=== PATIENT | male | born 1960 | race African-American/Black ===

== ENCOUNTER 2018-06-11 11:37 | Inpatient (IN) | payer OTHER ==
[2018-06-11 11:55] VITALS: BMI 22.7
--- NOTE | 2018-06-11 13:36 | HP ---
CIWA Score - CIWA Score Nausea/Vomitin Muscle Tremors: 2 Anxiety: 3 Agitation: 3 Paroxysmal Sweats: 1-Minimal Palms Moist Orientation: 0-Oriented Tacttile Disturbances: 1-Very Mild Itch/Numbness Auditory Disturbances: 1-Very Mild Visual Disturbances: 1-Very Mild Sensitivity Headache: 2-Mild CIWA-Ar Total Score: 16 Admission ROS BHS - HPI Chief Complaint: i need help to stop drinking alcohol,cocaine,marijuana Allergies/Adverse Reactions: Allergies Allergy/AdvReac Type Severity Reaction Status Date / Time No Known Allergies Allergy Verified 06/11/18 13:31 History of Present Illness: this 58 years old male with alcohol,cocaine and marijuana dependence seeking detox,withdrawal symptom,last detox 2013 unknown facility not completed low back pain nicotine dependence longest period of sobriety 2 years weight loss anxiety Exam Limitations: No Limitations - Ebola screening Have you traveled outside of the country in the last 21 days: No Have you had contact with anyone from an Ebola affected area: No Have you been sick,other than usual withdrawal symptoms: No Do you have a fever: No - Review of Systems Constitutional: Loss of Appetite, Malaise, Night Sweats, Weakness, Unintentional Wgt. Loss EENT: reports: Nose Congestion Respiratory: reports: No Symptoms reported Cardiac: reports: No Symptoms Reported GI: reports: Nausea, Indigestion, Abdominal cramping : reports: No Symptoms Reported Musculoskeletal: reports: Back Pain, Muscle Pain Integumentary: reports: Dryness Neuro: reports: Headache, Tremors Endocrine: reports: No Symptoms Reported Hematology: reports: No Symptoms Reported Psychiatric: reports: No Sypmtoms Reported, Judgement Intact, Mood/Affect Appropiate, Orientated x3, Agitated, Anxious Patient History - Patient Medical History Hx Anemia: No Hx Asthma: No Hx Chronic Obstructive Pulmonary Disease (COPD): No Hx Cancer: No Hx Cardiac Disorders: No Hx Congestive Heart Failure: No Hx Hypertension: No Hx Hypercholesterolemia: No Hx Pacemaker: No HX Cerebrovascular Accident: No Hx Seizures: No Hx Dementia: No Hx Diabetes: No Hx Gastrointestinal Disorders: No Hx Liver Disease: No Hx Genitourinary Disorders: No Hx Sexually Transmitted Disorders: No Hx Renal Disease (ESRD): No Hx Thyroid Disease: No Hx Human Immunodeficiency Virus (HIV): No (last 08/27 negative) Hx Hepatitis C: No Hx Depression: No Hx Suicide Attempt: No Hx Bipolar Disorder: No Hx Schizophrenia: No Other Medical History: no sucidal,no homicidal - Patient Surgical History Past Surgical History: Yes Hx Abdominal Surgery: Yes (umbilical hernia repair in 2013) - PPD History Previous Implant?: Yes Documented Results: Negative w/o proof PPD to be Administered?: Yes - Smoking Cessation Smoking history: Current every day smoker Have you smoked in the past 12 months: Yes Aproximately how many cigarettes per day: 10 Cigars Per Day: 0 Hx Chewing Tobacco Use: No Initiated information on smoking cessation: Yes 'Breaking Loose' booklet given: 06/11/18 - Substance & Tx. History Hx Alcohol Use: Yes Hx Substance Use: Yes Substance Use Type: Alcohol, Cocaine, Marijuana - Substances Abused Alcohol Route: Oral Frequency: Daily Amount used: 1 pint liquor Age of first use: 14 Date of Last Use: 06/10/18 Cocaine Route: Inhalation Frequency: 1-3 times last 30 days Amount used: 1 hit Age of first use: 16 Date of Last Use: 06/10/18 Marijuana/Hashish Route: Smoking Frequency: Daily Amount used: 1 bag Age of first use: 12 Date of Last Use: 06/10/18 Family Disease History - Family Disease History Family History: Denies Admission Physical Exam [facility] - Vital Signs Vital Signs: Vital Signs - 24 hr 06/11/18 11:54 Temperature 96.8 F L Pulse Rate 51 L Respiratory 18 Rate Blood Pressure 140/84 - Physical General Appearance: Yes: Moderate Distress, Tremorous, Irritable, Sweating, Anxious HEENTM: Yes: Normal ENT Inspection, SHIRA, Pharynx Normal, Other (denture upper and lower) Respiratory: Yes: Lungs Clear, Normal Breath Sounds, No Respiratory Distress Neck: Yes: Within Normal Limits, Supple, Trachea in good position Breast: Yes: Within Normal Limits Cardiology: Yes: Within Normal Limits, Regular Rhythm, Regular Rate, S1, S2 Abdominal: Yes: Within Normal Limits, Normal Bowel Sounds, Soft Genitourinary: Yes: Within Normal Limits Back: Yes: Muscle Spasm Musculoskeletal: Yes: full range of Motion, Back pain, Muscle Pain Extremities: Yes: Tremors Neurological: Yes: builder's labourer II-XII NML intact, Fully Oriented, Alert, Motor Strength 5/5 Integumentary: Yes: Dry Lymphatic: Yes: Within Normal Limits - Diagnostic (1) Alcohol dependence with uncomplicated withdrawal Current Visit: Yes Status: Acute (2) Cocaine dependence Current Visit: Yes Status: Acute (3) Cannabis dependence Current Visit: Yes Status: Acute (4) Anxiety Current Visit: Yes Status: Acute (5) Nicotine dependence Current Visit: Yes Status: Acute (6) Weight loss Current Visit: Yes Status: Acute Cleared for Admission S - Detox or Rehab [facility] Level of Care: Medically Managed Detox Regimen/Protocol: Librium S Breath Alcohol Content Breath Alcohol Content: 0 Urine Drug Screen - Results Drug Screen Negative: No Urine Drug Screen Results: THC-Marijuana, LUDIVINA-Cocaine
[2018-06-11] MEDS ORDERED: P-EPHED 60MG/TRIPROLIDI 2.5MG TABLET PO PRN (13:47)
[2018-06-11] MEDS ORDERED: IBUPROFEN 400 MG TABLET (FP) PO PRN (13:47)
[2018-06-11] MEDS ORDERED: MAGNESIUM CITRATE 300 ML BOTTLE PO PRN (13:47)
[2018-06-11] MEDS ORDERED: MAG HYDROX/AL HYDROX/SIMETH 30 ML UNIT-DOSE CUP PO PRN (13:47)
[2018-06-11] MEDS ORDERED: MAGNESIUM HYDROX 2400MG/30ML ORAL SUSPENSION 30 ML CUP PO PRN (13:47)
[2018-06-11] MEDS ORDERED: guaiFENesin/D-METHORPHAN HB 10 ML UNIT-DOSE CUPS PO PRN (13:47)
[2018-06-11] MEDS ORDERED: MENTHOL/PHENOL 1 EACH UD MM PRN (13:47)
[2018-06-11] MEDS ORDERED: hydrOXYzine PAMOATE 25 MG CAPSULE (FP) PO PRN (13:47)
[2018-06-11] MEDS ORDERED: chlordiazePOXIDE HCL 25 MG CAPSULE PO PRN (13:47)
[2018-06-11] MEDS ORDERED: LOPERAMIDE HCL 2 MG CAPSULE PO PRN (13:47)
[2018-06-11] MEDS ORDERED: ACETAMINOPHEN 325 MG TABLET (FP) PO PRN (13:47)
[2018-06-11 17:55] LABS: URINE APPEARANCE CLEAR; URINE BILIRUBIN NEGATIVE (<2.0 mg/dL); URINE COLOR LTYELLOW; URINE GLUCOSE (UA) NEGATIVE (NEGATIVE); URINE KETONE NEGATIVE (NEGATIVE); URINE LEUK ESTERASE NEGATIVE (NEGATIVE); URINE NITRITE NEGATIVE (NEGATIVE); URINE PROTEIN NEGATIVE (NEGATIVE); URINE UROBILINOGEN NEGATIVE mg/dL (0.2-1.0)
[2018-06-11] MEDS: chlordiazePOXIDE HCL 25 MG CAPSULE PO SCH ×2 (18:01→22:07)
[2018-06-11] MEDS ORDERED: MELATONIN 5 MG TABLETS PO PRN (22:00)
[2018-06-11] MEDS: THIAMINE HCL 100 MG TABLET (FP) PO SCH (22:08)
[2018-06-12] MEDS: chlordiazePOXIDE HCL 25 MG CAPSULE PO SCH ×4 (05:34→22:51)
[2018-06-12] MEDS: PRENATAL VITAMINS W/ FOLIC ACID TABLET (FP) PO SCH (10:08)
[2018-06-12 10:33] LABS: HEMATOCRIT 47.3 % (35.4-49); HEMOGLOBIN 15.2 GM/dL (11.7-16.9); MCH 30.3 pg (25.7-33.7); MCHC 32.3 g/dl (32.0-35.9); MEAN PLT VOLUME 8.8 fl (7.5-11.1); PLATELET COUNT 302 K/MM3 (134-434); RBC 5.03 M/mm3 (4.00-5.60); RDW 15.4 % (11.9-15.9); WHITE BLOOD COUNT 4.1 K/mm3 (4.0-10.0)
--- NOTE | 2018-06-12 11:07 | EKG ---
Test Reason : Blood Pressure : / mmHG Vent. Rate : 052 BPM Atrial Rate : 052 BPM P-R Int : 118 ms QRS Dur : 084 ms QT Int : 428 ms P-R-T Axes : 069 032 008 degrees QTc Int : 398 ms SINUS BRADYCARDIA NONSPECIFIC ST AND T WAVE ABNORMALITY ABNORMAL ECG NO PREVIOUS ECGS AVAILABLE Confirmed by Nicolas Hall MD ([id number]) on 06/12/2018 11:07:08 AM Referred By: Confirmed By:Nicolas Hall MD
--- NOTE | 2018-06-12 11:20 | PN ---
S CIWA - CIWA Score Nausea/Vomitin-No Nausea/No Vomiting Muscle Tremors: 4-Moderate,w/Arms Extend Anxiety: 3 Agitation: 2 Paroxysmal Sweats: 2 Orientation: 0-Oriented Tacttile Disturbances: 0-None Auditory Disturbances: 0-None Visual Disturbances: 0-None Headache: 0-None Present CIWA-Ar Total Score: 11 BHS Progress Note (SOAP) Subjective: sweats chills agitation interrupted sleep Objective: 06/12/18 11:18 Vital Signs Temperature 98.2 F 06/12/18 09:17 Pulse Rate 57 L 06/12/18 09:17 Respiratory Rate 18 06/12/18 09:17 Blood Pressure 112/69 06/12/18 09:17 O2 Sat by Pulse Oximetry (%) Laboratory Tests 06/11/18 06/11/18 06/12/18 06:00 15:25 06:00 WBC 4.1 RBC 5.03 Hgb 15.2 Hct 47.3 MCV 94.0 MCH 30.3 MCHC 32.3 RDW 15.4 Plt Count 302 MPV 8.8 Urine Color Ltyellow Urine Appearance Clear Urine pH 7.0 Ur Specific [place] 1.016 Urine Protein Negative Urine Glucose (UA) Negative Urine Ketones Negative Urine Blood Negative Urine Nitrite Negative Urine Bilirubin Negative Urine Urobilinogen Negative Ur Leukocyte Esterase Negative RPR Titer HIV 1&2 Antibody Screen Negative HIV P24 Antigen Negative 06/12/18 06:00 WBC RBC Hgb Hct MCV MCH MCHC RDW Plt Count MPV Urine Color Urine Appearance Urine pH Ur Specific [place] Urine Protein Urine Glucose (UA) Urine Ketones Urine Blood Urine Nitrite Urine Bilirubin Urine Urobilinogen Ur Leukocyte Esterase RPR Titer Nonreactive HIV 1&2 Antibody Screen HIV P24 Antigen labs pending aaox3 ambulating no acute distress Assessment: 06/12/18 11:19 withdrawal sx Plan: continue detox increase fluids
[2018-06-12 11:23] LABS: ALBUMIN 4.3 g/dl (3.4-5.0); ALK PHOS 65 U/L (45-117); ANION GAP -6 MMOL/L (8-16); BILIRUBIN,TOTAL 0.6 mg/dL (0.2-1); BLOOD UREA NITROGEN 10 mg/dL (7-18); CALCIUM 10.7 mg/dL (8.5-10.1); CHLORIDE 110 mmol/L (98-107); CO2 27 mmol/L (21-32); CREATININE 1.1 mg/dL (0.55-1.3); GLUCOSE,RANDOM 101 mg/dL (74-106); POTASSIUM 3.6 mmol/L (3.5-5.1); SGOT/AST 9 U/L (15-37); SGPT/ALT 22 U/L (13-61); SODIUM 131 mmol/L (136-145); TOT PROT 8.5 g/dl (6.4-8.2)
[2018-06-12] MEDS: THIAMINE HCL 100 MG TABLET (FP) PO SCH (22:51)
[2018-06-13] MEDS: chlordiazePOXIDE HCL 25 MG CAPSULE PO SCH ×2 (06:17→10:58)
[2018-06-13] MEDS ORDERED: COLLOIDAL OATMEAL 1 BAR EACH TP PRN (08:39)
[2018-06-13] MEDS: PRENATAL VITAMINS W/ FOLIC ACID TABLET (FP) PO SCH (10:06)
--- NOTE | 2018-06-13 10:47 | PN ---
S CIWA - CIWA Score Nausea/Vomitin-No Nausea/No Vomiting Muscle Tremors: 3 Anxiety: 2 Agitation: 2 Paroxysmal Sweats: 1-Minimal Palms Moist Orientation: 0-Oriented Tacttile Disturbances: 0-None Auditory Disturbances: 0-None Visual Disturbances: 0-None Headache: 0-None Present CIWA-Ar Total Score: 8 BHS Progress Note (SOAP) Subjective: mild alcohol withdrawal, social with peers in day room talking about aftercare Objective: 06/13/18 10:49 Vital Signs Temperature 97.5 F L 06/13/18 09:04 Pulse Rate 70 06/13/18 09:04 Respiratory Rate 18 06/13/18 09:04 Blood Pressure 120/69 06/13/18 09:04 O2 Sat by Pulse Oximetry (%) Laboratory Last Values WBC 4.1 K/mm3 (4.0-10.0) 06/12/18 06:00 RBC 5.03 M/mm3 (4.00-5.60) 06/12/18 06:00 Hgb 15.2 GM/dL (11.7-16.9) 06/12/18 06:00 Hct 47.3 % (35.4-49) 06/12/18 06:00 MCV 94.0 fl (80-96) 06/12/18 06:00 MCH 30.3 pg (25.7-33.7) 06/12/18 06:00 MCHC 32.3 g/dl (32.0-35.9) 06/12/18 06:00 RDW 15.4 % (11.9-15.9) 06/12/18 06:00 Plt Count 302 K/MM3 (134-434) 06/12/18 06:00 MPV 8.8 fl (7.5-11.1) 06/12/18 06:00 Sodium 131 mmol/L (136-145) L 06/12/18 06:00 Potassium 3.6 mmol/L (3.5-5.1) 06/12/18 06:00 Chloride 110 mmol/L (98-107) H 06/12/18 06:00 Carbon Dioxide 27 mmol/L (21-32) 06/12/18 06:00 Anion Gap -6 MMOL/L (8-16) L 06/12/18 06:00 BUN 10 mg/dL (7-18) 06/12/18 06:00 Creatinine 1.1 mg/dL (0.55-1.3) 06/12/18 06:00 Creat Clearance w eGFR > 60 (>60) 06/12/18 06:00 Random Glucose 101 mg/dL (74-106) 06/12/18 06:00 Calcium 10.7 mg/dL (8.5-10.1) H 06/12/18 06:00 Total Bilirubin 0.6 mg/dL (0.2-1) 06/12/18 06:00 AST 9 U/L (15-37) L 06/12/18 06:00 ALT 22 U/L (13-61) 06/12/18 06:00 Alkaline Phosphatase 65 U/L (45-117) 06/12/18 06:00 Total Protein 8.5 g/dl (6.4-8.2) H 06/12/18 06:00 Albumin 4.3 g/dl (3.4-5.0) 06/12/18 06:00 Urine Color Ltyellow 06/11/18 15:25 Urine Appearance Clear 06/11/18 15:25 Urine pH 7.0 (5.0-8.0) 06/11/18 15:25 Ur Specific [place] 1.016 (1.001-1.035) 06/11/18 15:25 Urine Protein Negative (NEGATIVE) 06/11/18 15:25 Urine Glucose (UA) Negative (NEGATIVE) 06/11/18 15:25 Urine Ketones Negative (NEGATIVE) 06/11/18 15:25 Urine Blood Negative (NEGATIVE) 06/11/18 15:25 Urine Nitrite Negative (NEGATIVE) 06/11/18 15:25 Urine Bilirubin Negative (<2.0 mg/dL) 06/11/18 15:25 Urine Urobilinogen Negative mg/dL (0.2-1.0) 06/11/18 15:25 Ur Leukocyte Esterase Negative (NEGATIVE) 06/11/18 15:25 RPR Titer Nonreactive (NONREACTIVE) 06/12/18 06:00 HIV 1&2 Antibody Screen Negative 06/11/18 06:00 HIV P24 Antigen Negative 06/11/18 06:00 lab noted Assessment: 06/13/18 10:52 withdrawal sx Plan: continue detox
[2018-06-13] MEDS: chlordiazePOXIDE 5 MG CAPSULE PO SCH ×2 (17:30→22:15)
[2018-06-13] MEDS: THIAMINE HCL 100 MG TABLET (FP) PO SCH (22:15)
[2018-06-13] MEDS: MINERAL OIL/PETROLAT/WATER TOPICAL CREAM 113 GM JAR TP SCH (22:15)
[2018-06-14] MEDS: chlordiazePOXIDE 5 MG CAPSULE PO SCH ×2 (06:00→10:52)
--- NOTE | 2018-06-14 09:47 | PN ---
BHS Progress Note (SOAP) Subjective: feeling better, no tremor less sweat, sleep better at night, social with peers in day room discuss aftercare with staff request soap for shower Objective: 06/14/18 09:46 Vital Signs Temperature 98.2 F 06/14/18 09:17 Pulse Rate 67 06/14/18 09:17 Respiratory Rate 18 06/14/18 09:17 Blood Pressure 118/83 06/14/18 09:17 O2 Sat by Pulse Oximetry (%) Laboratory Last Values WBC 4.1 K/mm3 (4.0-10.0) 06/12/18 06:00 RBC 5.03 M/mm3 (4.00-5.60) 06/12/18 06:00 Hgb 15.2 GM/dL (11.7-16.9) 06/12/18 06:00 Hct 47.3 % (35.4-49) 06/12/18 06:00 MCV 94.0 fl (80-96) 06/12/18 06:00 MCH 30.3 pg (25.7-33.7) 06/12/18 06:00 MCHC 32.3 g/dl (32.0-35.9) 06/12/18 06:00 RDW 15.4 % (11.9-15.9) 06/12/18 06:00 Plt Count 302 K/MM3 (134-434) 06/12/18 06:00 MPV 8.8 fl (7.5-11.1) 06/12/18 06:00 Sodium 131 mmol/L (136-145) L 06/12/18 06:00 Potassium 3.6 mmol/L (3.5-5.1) 06/12/18 06:00 Chloride 110 mmol/L (98-107) H 06/12/18 06:00 Carbon Dioxide 27 mmol/L (21-32) 06/12/18 06:00 Anion Gap -6 MMOL/L (8-16) L 06/12/18 06:00 BUN 10 mg/dL (7-18) 06/12/18 06:00 Creatinine 1.1 mg/dL (0.55-1.3) 06/12/18 06:00 Creat Clearance w eGFR > 60 (>60) 06/12/18 06:00 Random Glucose 101 mg/dL (74-106) 06/12/18 06:00 Calcium 10.7 mg/dL (8.5-10.1) H 06/12/18 06:00 Total Bilirubin 0.6 mg/dL (0.2-1) 06/12/18 06:00 AST 9 U/L (15-37) L 06/12/18 06:00 ALT 22 U/L (13-61) 06/12/18 06:00 Alkaline Phosphatase 65 U/L (45-117) 06/12/18 06:00 Total Protein 8.5 g/dl (6.4-8.2) H 06/12/18 06:00 Albumin 4.3 g/dl (3.4-5.0) 06/12/18 06:00 Urine Color Ltyellow 06/11/18 15:25 Urine Appearance Clear 06/11/18 15:25 Urine pH 7.0 (5.0-8.0) 06/11/18 15:25 Ur Specific [place] 1.016 (1.001-1.035) 06/11/18 15:25 Urine Protein Negative (NEGATIVE) 06/11/18 15:25 Urine Glucose (UA) Negative (NEGATIVE) 06/11/18 15:25 Urine Ketones Negative (NEGATIVE) 06/11/18 15:25 Urine Blood Negative (NEGATIVE) 06/11/18 15:25 Urine Nitrite Negative (NEGATIVE) 06/11/18 15:25 Urine Bilirubin Negative (<2.0 mg/dL) 06/11/18 15:25 Urine Urobilinogen Negative mg/dL (0.2-1.0) 06/11/18 15:25 Ur Leukocyte Esterase Negative (NEGATIVE) 06/11/18 15:25 RPR Titer Nonreactive (NONREACTIVE) 06/12/18 06:00 HIV 1&2 Antibody Screen Negative 06/11/18 06:00 HIV P24 Antigen Negative 06/11/18 06:00 lab noted Assessment: 06/14/18 09:47 mild withdrawal sx 06/14/18 09:47 dry itchy skin Plan: medically supervised detox [facility]
[2018-06-14] MEDS: PRENATAL VITAMINS W/ FOLIC ACID TABLET (FP) PO SCH (10:52)
[2018-06-14] MEDS: chlordiazePOXIDE HCL 10 MG CAPSULE PO SCH ×2 (18:54→23:06)
[2018-06-14] MEDS: MINERAL OIL/PETROLAT/WATER TOPICAL CREAM 113 GM JAR TP SCH (23:06)
[2018-06-14] MEDS: THIAMINE HCL 100 MG TABLET (FP) PO SCH (23:06)
[2018-06-15] MEDS: chlordiazePOXIDE HCL 10 MG CAPSULE PO SCH (06:11)
[2018-06-15 07:23] VITALS: BP 121/75; PULSE 67; TEMP 97.9
--- NOTE | 2018-06-15 11:08 | DS ---
[facility] Detox Discharge Summary Admission Date: 06/11/18 - History Present History: Alcohol Dependence, Cannabis Dependence, Cocaine Dependence - Physical Exam Results Vital Signs: Vital Signs Temperature 97.9 F 06/15/18 07:22 Pulse Rate 67 06/15/18 07:22 Respiratory Rate 18 06/15/18 07:22 Blood Pressure 121/75 06/15/18 07:22 O2 Sat by Pulse Oximetry (%) Pertinent Admission Physical Exam Findings: PATIENT COMPLETED DETOX TODAY. CLINICALLY STABLE. NO SI/HI REPORTED. TOLERATED DETOX WELL. ENCOURAGED TO ATTEND GROUP MEETINGS TO PREVENT RELAPSE. D/C INSTRUCTIONS PROVIDED BY STAFF. - Treatment Hospital Course: Detox Protocol Followed, Detoxed Safely, Responded well, Discharged Condition Good - Medication Discharge Medications: Ambulatory Orders NK [No Known Home Medication] 06/11/18 - AMA Did Patient Leave Against Medical Advice: No
== END 2018-06-15 09:07 | disposition home or self-care (01) | DRG 774 ==
LOC: YASAS 11:37 → Y6N 13:44
PROC: HZ2ZZZZ Detoxification Services for Substance Abuse Treatment (ICD-10-PCS; principal; 2018-06-11)
DX: F10.230 Alcohol dependence with withdrawal, uncomplicated (principal); F14.20 Cocaine dependence, uncomplicated; F12.20 Cannabis dependence, uncomplicated; F17.210 Nicotine dependence, cigarettes, uncomplicated; F41.9 Anxiety disorder, unspecified; L98.8 Other specified disorders of the skin and subcutaneous tissue; L29.9 Pruritus, unspecified; Z87.898 Personal history of other specified conditions
CPT/HCPCS: 36415; 80053; 81003; 85027; 86593; 87389; 93005; 93010

== ENCOUNTER 2018-12-07 12:26 | Inpatient (IN) | payer OTHER ==
--- NOTE | 2018-12-07 15:21 | HP ---
CIWA Score Nausea/Vomitin-No Nausea/No Vomiting Muscle Tremors: 2 Anxiety: 5 Agitation: 4-Moderately Restless Paroxysmal Sweats: No Perspiration Orientation: 3-Disoriented Date>2 days Tacttile Disturbances: 0-None Auditory Disturbances: 0-None Visual Disturbances: 0-None Headache: 0-None Present CIWA-Ar Total Score: 14 - Admission Criteria [facility] Guidelines: Admission for Medically Managed Detox: Requires at least one of the followin. CIWA greater than 12 2. Seizures within the past 24 hours 3. Delirium tremens within the past 24 hours 4. Hallucinations within the past 24 hours 5. Acute intervention needed for co occurring medical disorder 6. Acute intervention needed for co occurring psychiatric disorder 7. Severe withdrawal that cannot be handled at a lower level of care (continued vomiting, continued diarrhea, abnormal vital signs) requiring intravenous medication and/or fluids 8. Admission ROS [facility] Allergies/Adverse Reactions: Allergies Allergy/AdvReac Type Severity Reaction Status Date / Time No Known Allergies Allergy Verified 06/11/18 13:31 History of Present Illness: Search Terms: gina amezquita, 1960 Search Date: 12/07/2018 03:15:22 PM The Drug Utilization Report below displays all of the controlled substance prescriptions, if any, that your patient has filled in the last twelve months. The information displayed on this report is compiled from pharmacy submissions to the Department, and accurately reflects the information as submitted by the pharmacies. This report was requested by: Misty Ferraro | Reference #: [id number] There are no results for the search terms that you entered. pt here requesting detox from cocaine and etoh use , etoh reports liquor 1.5 pints/day since age 15 , denies sobriety , priro detox 1 yr ago , no outpt program , latest use this morning, current symptoms as above . reports if not drinking " nothing happens, I will just be cranky " . denies seizures, blackouts, tremors , starts drinking in the mornings .referred by the [facility] . cocaine use : 1 x/week cannabis : 3 x/week tobacco : 09/14 ppd PMhx : denies pshx : umbil hernia psych : denies denies current si / hi shx : homeless , unemployed , finaces habit through bottle redemption . Legal - denies . Exam Limitations: No Limitations - Ebola screening Have you traveled outside of the country in the last 21 days: No Have you had contact with anyone from an Ebola affected area: No Have you been sick,other than usual withdrawal symptoms: No - Review of Systems Constitutional: No Symptoms Reported EENT: reports: No Symptoms Reported, Other (reading glasses , upper and lower dentures) Respiratory: reports: No Symptoms reported Cardiac: reports: No Symptoms Reported GI: reports: No Symptoms Reported : reports: No Symptoms Reported Musculoskeletal: reports: No Symptoms Reported Integumentary: reports: No Symptoms Reported Neuro: reports: No Symptoms reported Endocrine: reports: No Symptoms Reported Psychiatric: reports: No Sypmtoms Reported, Orientated x3 Patient History - Patient Medical History Hx Anemia: No Hx Asthma: No Hx Chronic Obstructive Pulmonary Disease (COPD): No Hx Cancer: No Hx Cardiac Disorders: No Hx Congestive Heart Failure: No Hx Hypertension: No Hx Hypercholesterolemia: No Hx Pacemaker: No HX Cerebrovascular Accident: No Hx Seizures: No Hx Dementia: No Hx Diabetes: No Hx Gastrointestinal Disorders: No Hx Liver Disease: No Hx Genitourinary Disorders: No Hx Sexually Transmitted Disorders: No Hx Renal Disease (ESRD): No Hx Thyroid Disease: No Hx Human Immunodeficiency Virus (HIV): No (last 08/27 negative) Hx Hepatitis C: No Hx Depression: No Hx Suicide Attempt: No Hx Bipolar Disorder: No Hx Schizophrenia: No - Patient Surgical History Past Surgical History: Yes Hx Abdominal Surgery: Yes (umbilical hernia repair in 2012) - PPD History Date: 06/13/18 - Smoking Cessation Smoking history: Current every day smoker Have you smoked in the past 12 months: Yes Aproximately how many cigarettes per day: 10 Cigars Per Day: 0 Hx Chewing Tobacco Use: No Initiated information on smoking cessation: No Family Disease History - Family Disease History Family Disease History: Other: Father (a & w ), Mother (a & w ), Brother (3 paternal, 2 matarnal ), Sister (1 maternal, 2 paternal ) Other Family History: cousin- brain tumor. no children Admission Physical Exam BHS - Vital Signs Vital Signs: Vital Signs - 24 hr 12/07/18 14:01 Temperature 98.9 F Pulse Rate 62 Respiratory 18 Rate Blood Pressure 144/70 - Physical General Appearance: Yes: No Apparent Distress HEENTM: Yes: EOMI, Hearing grossly Normal, Normocephalic, Normal Voice Respiratory: Yes: Chest Non-Tender, Lungs Clear, Normal Breath Sounds Neck: Yes: No masses,lesions,Nodules, Trachea in good position Cardiology: Yes: Regular Rhythm, Regular Rate, S1, S2 Abdominal: Yes: Normal Bowel Sounds, Non Tender, Soft Musculoskeletal: Yes: full range of Motion, Gait Steady Extremities: Yes: Normal Capillary Refill, Normal Range of Motion, Non-Tender Neurological: Yes: Fully Oriented, Alert, Motor Strength 5/5 Integumentary: Yes: Warm - Diagnostic (1) Cannabis dependence Current Visit: Yes Status: Chronic (2) Cocaine dependence Current Visit: Yes Status: Chronic Qualifiers: Substance use status: uncomplicated Qualified Code(s): F14.20 - Cocaine dependence, uncomplicated (3) Nicotine dependence Current Visit: Yes Status: Chronic Qualifiers: Nicotine product type: cigarettes (4) Alcohol dependence with uncomplicated withdrawal Current Visit: Yes Status: Acute BHS Breath Alcohol Content Breath Alcohol Content: 0 Urine Drug Screen - Results Drug Screen Negative: No Urine Drug Screen Results: THC-Marijuana, LUDIVINA-Cocaine Inpatient Rehab Admission - Rehab Decision to Admit Inpatient rehab admission?: No
[2018-12-07] MEDS ORDERED: ACETAMINOPHEN 325 MG TABLET (FP) PO PRN ×2 (17:57)
[2018-12-07] MEDS ORDERED: IBUPROFEN 400 MG TABLET (FP) PO PRN (17:57)
[2018-12-07] MEDS ORDERED: MAG HYDROX/AL HYDROX/SIMETH 30 ML UNIT-DOSE CUP PO PRN (17:57)
[2018-12-07] MEDS ORDERED: MENTHOL/PHENOL 1 EACH UD MM PRN (17:57)
[2018-12-07] MEDS ORDERED: METHOCARBAMOL 500 MG TABLET PO PRN (17:57)
[2018-12-07] MEDS ORDERED: MAGNESIUM CITRATE 300 ML BOTTLE PO PRN (17:57)
[2018-12-07] MEDS ORDERED: MAGNESIUM HYDROX 2400MG/30ML ORAL SUSPENSION 30 ML CUP PO PRN (17:57)
[2018-12-07] MEDS ORDERED: MELATONIN 5 MG TABLETS PO PRN (17:57)
[2018-12-07] MEDS ORDERED: chlordiazePOXIDE HCL 10 MG CAPSULE PO PRN (17:57)
[2018-12-07] MEDS ORDERED: BISMUTH SUBSALICYLATE 524 MG/30 ML UD PO PRN (17:57)
[2018-12-07] MEDS: THIAMINE HCL 100 MG TABLET (FP) PO SCH (22:00)
[2018-12-07] MEDS: chlordiazePOXIDE HCL 25 MG CAPSULE PO SCH (22:00)
[2018-12-08] MEDS: chlordiazePOXIDE HCL 25 MG CAPSULE PO SCH ×2 (05:24→14:31)
[2018-12-08] MEDS: PRENATAL VITAMINS W/ FOLIC ACID TABLET (FP) PO SCH (10:09)
[2018-12-08 10:54] LABS: HEMATOCRIT 38.4 % (35.4-49); HEMOGLOBIN 12.2 GM/dL (11.7-16.9); MCH 29.7 pg (25.7-33.7); MCHC 31.9 g/dl (32.0-35.9); MEAN CELL VOLUME 93.2 fl (80-96); MEAN PLT VOLUME 7.7 fl (7.5-11.1); PLATELET COUNT 427 K/MM3 (134-434); RBC 4.12 M/mm3 (4.00-5.60); RDW 15.2 % (11.9-15.9); WHITE BLOOD COUNT 3.1 K/mm3 (4.0-10.0)
[2018-12-08 11:03] LABS: ALK PHOS 53 U/L (45-117); ANION GAP 5 MMOL/L (8-16); BILIRUBIN,TOTAL 0.3 mg/dL (0.2-1); BLOOD UREA NITROGEN 19 mg/dL (7-18); CALCIUM 8.7 mg/dL (8.5-10.1); CHLORIDE 107 mmol/L (98-107); CO2 26 mmol/L (21-32); CREATININE 0.8 mg/dL (0.55-1.3); GLUCOSE,RANDOM 93 mg/dL (74-106); POTASSIUM 4.6 mmol/L (3.5-5.1); SGOT/AST 10 U/L (15-37); SGPT/ALT 20 U/L (13-61); SODIUM 138 mmol/L (136-145); TOT PROT 5.9 g/dl (6.4-8.2)
--- NOTE | 2018-12-08 16:35 | PN ---
S CIWA - CIWA Score Nausea/Vomitin-No Nausea/No Vomiting Muscle Tremors: 2 Anxiety: 1-Mildly Anxious Agitation: 2 Paroxysmal Sweats: 3 Orientation: 0-Oriented Tacttile Disturbances: 0-None Auditory Disturbances: 0-None Visual Disturbances: 0-None Headache: 0-None Present CIWA-Ar Total Score: 8 BHS Progress Note (SOAP) Subjective: States feel fine "a little anxious" Objective: 12/08/18 16:32 A & Ox 3 Noted ambulating on unit in no acute dsitress slightly irritable Vital Signs Temperature 96.3 F L 12/08/18 13:54 Pulse Rate 52 L 12/08/18 13:54 Respiratory Rate 18 12/08/18 13:54 Blood Pressure 116/72 12/08/18 13:54 O2 Sat by Pulse Oximetry (%) low HR - denies any cardiac complaints nor dizziness at this time Vital Signs - 24 hr 12/07/18 12/08/18 12/08/18 22:06 00:30 03:30 Temperature 98.2 F Pulse Rate 54 L Respiratory 16 18 18 Rate Blood Pressure 121/73 12/08/18 12/08/18 12/08/18 06:02 09:56 13:54 Temperature 97.8 F 97.8 F 96.3 F L Pulse Rate 63 59 L 52 L Respiratory 18 18 18 Rate Blood Pressure 109/63 118/66 116/72 Laboratory Last Values WBC 3.1 K/mm3 (4.0-10.0) L 12/08/18 07:45 RBC 4.12 M/mm3 (4.00-5.60) 12/08/18 07:45 Hgb 12.2 GM/dL (11.7-16.9) 12/08/18 07:45 Hct 38.4 % (35.4-49) D 12/08/18 07:45 MCV 93.2 fl (80-96) 12/08/18 07:45 MCH 29.7 pg (25.7-33.7) 12/08/18 07:45 MCHC 31.9 g/dl (32.0-35.9) L 12/08/18 07:45 RDW 15.2 % (11.9-15.9) 12/08/18 07:45 Plt Count 427 K/MM3 (134-434) D 12/08/18 07:45 MPV 7.7 fl (7.5-11.1) D 12/08/18 07:45 Sodium 138 mmol/L (136-145) 12/08/18 07:45 Potassium 4.6 mmol/L (3.5-5.1) 12/08/18 07:45 Chloride 107 mmol/L (98-107) 12/08/18 07:45 Carbon Dioxide 26 mmol/L (21-32) 12/08/18 07:45 Anion Gap 5 MMOL/L (8-16) L 12/08/18 07:45 BUN 19 mg/dL (7-18) H 12/08/18 07:45 Creatinine 0.8 mg/dL (0.55-1.3) 12/08/18 07:45 Creat Clearance w eGFR 100.00 (>60) 12/08/18 07:45 Random Glucose 93 mg/dL (74-106) 12/08/18 07:45 Calcium 8.7 mg/dL (8.5-10.1) 12/08/18 07:45 Total Bilirubin 0.3 mg/dL (0.2-1) 12/08/18 07:45 AST 10 U/L (15-37) L 12/08/18 07:45 ALT 20 U/L (13-61) 12/08/18 07:45 Alkaline Phosphatase 53 U/L (45-117) 12/08/18 07:45 Total Protein 5.9 g/dl (6.4-8.2) L 12/08/18 07:45 Albumin 3.0 g/dl (3.4-5.0) L 12/08/18 07:45 RPR Titer Nonreactive (NONREACTIVE) 12/08/18 07:45 noted Assessment: 12/08/18 16:35 withdrawal sx Plan: continue detox Encourage po hydration
[2018-12-08] MEDS: chlordiazePOXIDE 5 MG CAPSULE PO SCH (22:00)
[2018-12-08] MEDS: THIAMINE HCL 100 MG TABLET (FP) PO SCH (22:29)
[2018-12-09] MEDS: chlordiazePOXIDE 5 MG CAPSULE PO SCH ×2 (05:32→14:15)
[2018-12-09] MEDS: PRENATAL VITAMINS W/ FOLIC ACID TABLET (FP) PO SCH (10:24)
--- NOTE | 2018-12-09 11:00 | PN ---
[facility] CIWA - CIWA Score Nausea/Vomitin-No Nausea/No Vomiting Muscle Tremors: 1-None Visible, but [place] Anxiety: 1-Mildly Anxious Agitation: 1-Slight > Activity Paroxysmal Sweats: No Perspiration Orientation: 0-Oriented Tacttile Disturbances: 0-None Auditory Disturbances: 0-None Visual Disturbances: 0-None Headache: 1-Very Mild CIWA-Ar Total Score: 4 S Progress Note (SOAP) Subjective: feeling ok today discuss aftercare with staff Objective: 12/09/18 10:59 Vital Signs Temperature 98.6 F 12/09/18 09:51 Pulse Rate 57 L 12/09/18 09:51 Respiratory Rate 18 12/09/18 09:51 Blood Pressure 119/72 12/09/18 09:51 O2 Sat by Pulse Oximetry (%) Laboratory Last Values WBC 3.1 K/mm3 (4.0-10.0) L 12/08/18 07:45 RBC 4.12 M/mm3 (4.00-5.60) 12/08/18 07:45 Hgb 12.2 GM/dL (11.7-16.9) 12/08/18 07:45 Hct 38.4 % (35.4-49) D 12/08/18 07:45 MCV 93.2 fl (80-96) 12/08/18 07:45 MCH 29.7 pg (25.7-33.7) 12/08/18 07:45 MCHC 31.9 g/dl (32.0-35.9) L 12/08/18 07:45 RDW 15.2 % (11.9-15.9) 12/08/18 07:45 Plt Count 427 K/MM3 (134-434) D 12/08/18 07:45 MPV 7.7 fl (7.5-11.1) D 12/08/18 07:45 Sodium 138 mmol/L (136-145) 12/08/18 07:45 Potassium 4.6 mmol/L (3.5-5.1) 12/08/18 07:45 Chloride 107 mmol/L (98-107) 12/08/18 07:45 Carbon Dioxide 26 mmol/L (21-32) 12/08/18 07:45 Anion Gap 5 MMOL/L (8-16) L 12/08/18 07:45 BUN 19 mg/dL (7-18) H 12/08/18 07:45 Creatinine 0.8 mg/dL (0.55-1.3) 12/08/18 07:45 Creat Clearance w eGFR 100.00 (>60) 12/08/18 07:45 Random Glucose 93 mg/dL (74-106) 12/08/18 07:45 Calcium 8.7 mg/dL (8.5-10.1) 12/08/18 07:45 Total Bilirubin 0.3 mg/dL (0.2-1) 12/08/18 07:45 AST 10 U/L (15-37) L 12/08/18 07:45 ALT 20 U/L (13-61) 12/08/18 07:45 Alkaline Phosphatase 53 U/L (45-117) 12/08/18 07:45 Total Protein 5.9 g/dl (6.4-8.2) L 12/08/18 07:45 Albumin 3.0 g/dl (3.4-5.0) L 12/08/18 07:45 RPR Titer Nonreactive (NONREACTIVE) 12/08/18 07:45 lab noted Assessment: 12/09/18 11:00 withdrawal sx Plan: continue detox
[2018-12-09] MEDS ORDERED: chlordiazePOXIDE HCL 10 MG CAPSULE PO PRN (21:00)
[2018-12-09] MEDS: THIAMINE HCL 100 MG TABLET (FP) PO SCH (21:44)
[2018-12-09] MEDS: chlordiazePOXIDE HCL 10 MG CAPSULE PO SCH (21:44)
[2018-12-10 06:12] VITALS: BP 113/70; PULSE 68; TEMP 97.8
[2018-12-10] MEDS: chlordiazePOXIDE HCL 10 MG CAPSULE PO SCH (06:46)
--- NOTE | 2018-12-10 16:13 | PN ---
[facility] Progress Note (SOAP) Subjective: Anxious, Agitated. Objective: PATIENT A & O X 3, OBSERVED AMBULATING ON UNIT. 12/10/18 16:09 Vital Signs Temperature 97.8 F 12/10/18 06:11 Pulse Rate 68 12/10/18 06:11 Respiratory Rate 18 12/10/18 06:30 Blood Pressure 113/70 12/10/18 06:11 O2 Sat by Pulse Oximetry (%) Laboratory Tests 12/08/18 12/08/18 12/08/18 07:45 07:45 07:45 WBC 3.1 L RBC 4.12 Hgb 12.2 Hct 38.4 D MCV 93.2 MCH 29.7 MCHC 31.9 L RDW 15.2 Plt Count 427 D MPV 7.7 D Sodium 138 Potassium 4.6 Chloride 107 Carbon Dioxide 26 Anion Gap 5 L BUN 19 H Creatinine 0.8 Creat Clearance w eGFR 100.00 Random Glucose 93 Calcium 8.7 Total Bilirubin 0.3 AST 10 L ALT 20 Alkaline Phosphatase 53 Total Protein 5.9 L Albumin 3.0 L RPR Titer Nonreactive LABS NOTED. Assessment: 12/10/18 16:09 WITHDRAWAL SYMPTOMS. LEUKOPENIA. 12/10/18 16:11 Plan: CONTINUE DETOX.
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
== END 2018-12-10 09:54 | disposition home or self-care (01) | DRG 774 ==
LOC: YASAS 12:26 → Y3N 18:44
PROVIDERS: ADMIT Surgery; ATTEND Surgery
PROC: HZ2ZZZZ Detoxification Services for Substance Abuse Treatment (ICD-10-PCS; principal; 2018-12-07)
DX: F10.230 Alcohol dependence with withdrawal, uncomplicated (principal); F14.20 Cocaine dependence, uncomplicated; F12.20 Cannabis dependence, uncomplicated; F17.210 Nicotine dependence, cigarettes, uncomplicated; F91.8 Other conduct disorders; D72.819 Decreased white blood cell count, unspecified
CPT/HCPCS: 36415; 80053; 85027; 86593